=== PATIENT | female | born 1980 | race Caucasian/White ===

== ENCOUNTER 2017-02-02 16:00 | Inpatient (IN) | payer OTHER ==
[~2017-02-02 16:00] MED LIST: ELECTROLYTE-148 SOLN 1,000 ML IV ONE
[2017-02-02] MEDS ORDERED: AMPICILLIN 2 GM/100 ML BAG (PRE-DOCKED) IVPB ONE (16:30)
[2017-02-02] MEDS ORDERED: BUTORPHANOL TARTRATE 1 MG/ML VIAL IVPUSH ONE ×2 (17:15→17:30)
[2017-02-02] MEDS ORDERED: PROMETHAZINE HCL 25 MG/1 ML VIAL IVPUSH ONE ×2 (17:15→17:30)
[2017-02-02 17:42] LABS: BASOPHIL 0.2 % (0-2.0); EOSINOPHIL 0.1 % (0-4.5); MCH 28.6 pg (25.7-33.7); MCHC 32.3 g/dl (32.0-36.0); MEAN CELL VOLUME 88.6 fl (80-96); MEAN PLT VOLUME 11.9 fl (7.5-11.1); PLATELET COUNT 149 K/MM3 (134-434); RDW 14.3 % (11.6-15.6); WHITE BLOOD COUNT 13.7 K/mm3 (4.0-10.0)
[2017-02-02 18:07] VITALS: BMI 34.4
[2017-02-02 18:16] LABS: INR 0.91 (0.82-1.09)
[2017-02-02 18:19] LABS: ACTIVATED PTT 26.4 SECONDS (26.9-34.4)
[2017-02-02 18:22] LABS: CREATININE 0.7 mg/dL (0.55-1.02)
[2017-02-02 18:23] LABS: CALCIUM 9.1 mg/dL (8.5-10.1); COCKROFT - GAULT 133.79
[2017-02-02 18:44] LABS: HIV 1 & 2 AB NEGATIVE; HIV 1 AGp24 NEGATIVE
[2017-02-02 18:52] LABS: URINE MARIJUANA THC NEGATIVE ng/ml (CUTOFF=50)
--- NOTE | 2017-02-02 18:53 | HP ---
Past Medical History - Primary Care Physician PCP:: Matthias Baker - Admission Chief Complaint: 38.5 weeks, labor History of Present Illness: 36 yo f g 5 [id number], edc by sono in labor . c/o labor, cx 3 cm , 80 vx -2 mi, fhr cat 1. contraction irregular History Source: Patient Limitations to Obtaining History: No Limitations - Past Medical History ...: 5 ...Para: 3 ...Term: 3 ...: 0 ...Spon : 1 ...Induced : 0 ...Multiple Gestation: 0 ...LMP: 05/26/16 ... Weeks Gestation by Dates: 35.5 ...EDC by Dates: 03/02/17 ...EDC by Sono: 02/11/17 Endocrine: Yes: Diabetes Mellitus (GDM,diet controlled) - Past Surgical History Hx Myomectomy: No Hx Transabdominal Cerclage: No - Smoking History Smoking history: Never smoked Have you smoked in the past 12 months: No - Alcohol/Substance Use Hx Alcohol Use: No - Social History History of Recent Travel: No Home Medications - Allergies Allergies/Adverse Reactions: Allergies Allergy/AdvReac Type Severity Reaction Status Date / Time No Known Allergies Allergy Verified 02/02/17 17:57 - Home Medications Home Medications: Ambulatory Orders Pnv95/Ferrous Fumarate/FA [ Vitamin Tablet] 1 each PO DAILY 02/02/17 Review of Systems - Review of Systems Constitutional: reports: No Symptoms Eyes: reports: No Symptoms HENT: reports: No Symptoms Neck: reports: No Symptoms Cardiovascular: reports: No Symptoms Respiratory: reports: No Symptoms Gastrointestinal: reports: No Symptoms Genitourinary: reports: No Symptoms Breasts: reports: No Symptoms Reported Musculoskeletal: reports: No Symptoms Integumentary: reports: No Symptoms Neurological: reports: No Symptoms Endocrine: reports: No Symptoms Hematology/Lymphatic: reports: No Symptoms Psychiatric: reports: No Symptoms Physical Exam - Maternity Vital Signs: Vital Signs Temperature 98.7 F 02/02/17 18:00 Pulse Rate 97 H 02/02/17 18:00 Respiratory Rate 20 02/02/17 18:00 Blood Pressure 130/81 02/02/17 18:00 O2 Sat by Pulse Oximetry (%) Constitutional: Yes: Well Nourished, No Distress, Calm Eyes: Yes: WNL, Conjunctiva Clear, EOM Intact HENT: Yes: WNL, Atraumatic, Normocephalic Neck: Yes: WNL, Supple, Trachea Midline Cardiovascular: Yes: WNL, Regular Rate and Rhythm Breast(s): Yes: WNL - Abdominal Exam/OB Fundal Height: 40 Number of Fetuses: Single Contractions: Yes Regularity: Regular Intensity: Mod/Strong Monitor Mode: External Heart Rate Location: [facility] Category: I Accelerations: Uniform - Vaginal Exam/OB Speculum Exam: No Dilatation (cm): 3 cm, Effacement (%): 80 Amniotic Membrane Status: Intact Station: -2 - Physical Exam Extremities: Yes: WNL Edema: Yes Edema: LLE: Trace, RLE: Trace Deep Tendon Reflex Grade: Normal +2 Psychiatric: Yes: WNL - Labs Lab Results: CBC, BMP 02/02/17 16:30 02/02/17 16:30 Hemorrhage Risk Assessment - Risk Factors Medium Risk Factors: Yes: None High Risk Factors: Yes: None Risk Score: 1 Risk Level: Medium Risk Problem List - Problems (1) with 38 completed weeks gestation Code(s): Z3A.38 - 38 WEEKS GESTATION OF (2) Labor established Code(s): [id number] - (3) Gestational diabetes mellitus (GDM) affecting , antepartum Code(s): O24.919 - UNSP DIABETES MELLITUS IN , UNSPECIFIED TRIMESTER Assessment/Plan plan admit, fhm., pain management
--- NOTE | 2017-02-02 19:00 | PN ---
Progress Note (short form) - Note Progress Note: 515 pm, cx 6 cm, srom, clear , fhr cat 1, contraction mild Problem List - Problems (1) with 38 completed weeks gestation Code(s): Z3A.38 - 38 WEEKS GESTATION OF (2) Labor established Code(s): [id number] - (3) Gestational diabetes mellitus (GDM) affecting , antepartum Code(s): O24.919 - UNSP DIABETES MELLITUS IN , UNSPECIFIED TRIMESTER
[2017-02-02] MEDS ORDERED: BENZOCAINE 20% 57 GM BOTTLE TP PRN (20:19)
[2017-02-02] MEDS ORDERED: ACETAMINOPHEN 325 MG TABLET (FP) PO PRN (20:19)
[2017-02-02] MEDS ORDERED: WITCH HAZEL 50% (TUCKS) 40 PAD/JAR PAD TP PRN (20:19)
[2017-02-02] MEDS ORDERED: BISACODYL 10 MG SUPP.RECT RC PRN (20:19)
[2017-02-02] MEDS ORDERED: METHYLERGONOVINE MALEATE 0.2 MG/1 ML AMP IM PRN (20:19)
[2017-02-02] MEDS ORDERED: BENZOCAINE 28 GM HEMORRHOIDAL OINTMENT TP PRN (20:19)
[2017-02-02] MEDS ORDERED: AMPICILLIN (PRE-DOCKED) 1 GM/100 ML BAG IVPB SCH (20:30)
[2017-02-02] MEDS ORDERED: D5W-LR W/ 20 UNITS OXYTOCIN 1,000 ML IV SCH (20:30)
[2017-02-02 20:33] LABS: PLATELET ESTIMATE ADEQUATE (NORMAL)
[2017-02-02] MEDS: IBUPROFEN 600 MG TABLET (FP) PO PRN (21:15)
[2017-02-02] MEDS ORDERED: FERROUS SO4 325 MG TABLET (FP) PO SCH (22:00)
[2017-02-03 07:37] LABS: BASOPHIL 0.3 % (0-2.0); EOSINOPHIL 0.2 % (0-4.5); MCH 29.3 pg (25.7-33.7); MCHC 32.6 g/dl (32.0-36.0); MEAN CELL VOLUME 89.8 fl (80-96); MEAN PLT VOLUME 12.2 fl (7.5-11.1); NEUTROPHILS 71.2 % (42.8-82.8); PLATELET COUNT 104 K/MM3 (134-434); RDW 14.3 % (11.6-15.6); WHITE BLOOD COUNT 14.1 K/mm3 (4.0-10.0)
[2017-02-03] MEDS ORDERED: PRENATAL VITAMINS W/ FOLIC ACID TABLET (FP) PO SCH (10:00)
[2017-02-03] MEDS ORDERED: DIPHTH,PERTUSS(ACELL),TET 0.5 ML DISP.SYRIN IM ONE (10:00)
[2017-02-03] MEDS: FERROUS SO4 325 MG TABLET (FP) PO SCH ×2 (10:08→17:14)
[2017-02-03] MEDS: PRENATAL VITAMINS W/ FOLIC ACID TABLET (FP) PO SCH (10:08)
[2017-02-03] MEDS: IBUPROFEN 600 MG TABLET (FP) PO PRN (10:25)
[2017-02-03] MEDS ORDERED: SENNOSIDES/DOCUSATE COMBO (SENNA PLUS) TABLET (UD) PO PRN (22:00)
[2017-02-04] MEDS: FERROUS SO4 325 MG TABLET (FP) PO SCH (07:26)
[2017-02-04] MEDS: PRENATAL VITAMINS W/ FOLIC ACID TABLET (FP) PO SCH (10:11)
[2017-02-04 11:28] VITALS: BP 115/82; PULSE 66; TEMP 98.6
--- NOTE | 2017-02-07 20:18 | DS ---
Physical Exam-[employer] Vital Signs: Vital Signs Temperature 98.6 F 02/04/17 10:00 Pulse Rate 66 02/04/17 10:00 Respiratory Rate 20 02/04/17 10:00 Blood Pressure 115/82 02/04/17 10:00 O2 Sat by Pulse Oximetry (%) Constitutional: Yes: Well Nourished, No Distress, Calm Eyes: Yes: WNL, Conjunctiva Clear, EOM Intact HENT: Yes: WNL, Atraumatic, Normocephalic Neck: Yes: WNL, Supple, Trachea Midline Cardiovascular: Yes: WNL, Regular Rate and Rhythm Respiratory: Yes: WNL, Regular, CTA Bilaterally Gastrointestinal: Yes: WNL ...Rectal Exam: Yes: WNL Renal/: Yes: WNL External Genitalia: Yes: Normal Vaginal Exam: Yes: Normal ....Post : Yes: Uterus firm, Uterus non-tender, Slight lochia rubra Breast(s): Yes: WNL Musculoskeletal: Yes: WNL Extremities: Yes: WNL Integumentary: Yes: WNL Neurological: Yes: WNL, Alert, Oriented ...Motor Strength: WNL Psychiatric: Yes: WNL, Alert, Oriented Labs: CBC, BMP 02/03/17 06:00 02/02/17 16:30 Delivery - Delivery Vaginal Delivery: Spontaneous (no complication) Type of Anesthesia: Local Episiotomy/Laceration: None EBL (cc): 300 Delivery, Single - Stages of Labor Date 1st Stage Initiatied: 02/02/17 Time 1st Stage Initiated: 12:00 Date 2nd Stage Initiated: 02/02/17 Time 2nd Stage Initiated: 19:45 Date of Delivery: 02/02/17 Time of Delivery: 20:10 Time Placenta Delivered: 20:15 Placenta: Yes: Spontaneous - Condition of Retrieval Specialist/Global Program Director Present: No Gender: Female Weight: 7 lb 3 oz Position: Left, OA Total Hours ROM (Hrs/Mins): 3H5M - 1 Minute Total Score: 9 5 Minutes Total Score: 9 - Feeding Plan Initial Plan: Elected not to breastfeed exclusively throughout hospitalization Discharge Summary Reason For Visit: LABOR Procedures: Principal: Condition: Good - Instructions Diet, Activity, Other Instructions: regular diet, follow up [facility] care 4 weeks Referrals: Matthias Baker MD [Staff Physician] - Disposition: HOME - Home Medications Comprehensive Discharge Medication List: Ambulatory Orders Pnv95/Ferrous Fumarate/FA [ Vitamin Tablet] 1 each PO DAILY 02/02/17 Ibuprofen [Motrin -] 600 mg PO QID #28 tablet 02/03/17
== END 2017-02-04 12:40 | disposition home or self-care (01) | DRG 560 ==
LOC: JLDR 16:00 → J3W 21:50
PROVIDERS: ADMIT Obstetrics & Gynecology; ATTEND Obstetrics & Gynecology
PROC: 10E0XZZ Delivery of Products of Conception, External Approach (ICD-10-PCS; principal; 2017-02-02)
DX: O24.420 Gestational diabetes mellitus in childbirth, diet controlled (principal); Z3A.38 38 weeks gestation of pregnancy; Z37.0 Single live birth
CPT/HCPCS: 36415; 59409; 80048; 80307; 85025; 85610; 85730; 86593; 86850; 86900; 86901; 87389; 90715

== ENCOUNTER 2021-01-20 07:35 | Inpatient (IN) | payer OTHER ==
[2021-01-20] MEDS ORDERED: OXYTOCIN 20 UNITS in 0.9% NS 20 UNIT/1,000 ML INFUS.BAG IV ONE ×2 (08:21→10:20)
[2021-01-20 08:22] VITALS: BMI 37.6
[2021-01-20] MEDS ORDERED: ELECTROLYTE-148 SOLN 1,000 ML IV SCH (09:00)
[2021-01-20 09:20] LABS: BASO % 0.2 % (0-2.0); EOS % 0.3 % (0-4.5); HEMATOCRIT 38.3 % (32.4-45.2); HEMOGLOBIN 12.9 GM/dL (10.7-15.3); MCH 31.2 pg (25.7-33.7); MCHC 33.8 g/dl (32.0-36.0); MEAN CELL VOLUME 92.2 fl (80-96); NEUT % 51.5 % (42.8-82.8); PLATELET COUNT 126 K/MM3 (134-434); RBC 4.15 M/mm3 (3.60-5.2); RDW 15.6 % (11.6-15.6); WHITE BLOOD COUNT 8.4 K/mm3 (4.0-10.0)
[2021-01-20 09:26] LABS: INR 0.86 (0.83-1.09); PROTHROMBIN TIME (PATIENT) 10.5 SEC (9.7-13.0)
[2021-01-20 09:29] LABS: ACTIVATED PTT 22.9 SECONDS (25.2-36.5)
[2021-01-20] MEDS ORDERED: BISACODYL 10 MG SUPP.RECT RC PRN (09:35)
[2021-01-20] MEDS ORDERED: WITCH HAZEL 50% (TUCKS) 40 PAD/JAR PAD TP PRN (09:35)
[2021-01-20] MEDS ORDERED: BENZOCAINE 20% 57 GM BOTTLE TP PRN (09:35)
[2021-01-20] MEDS ORDERED: BENZOCAINE 28 GM HEMORRHOIDAL OINTMENT TP PRN (09:35)
[2021-01-20] MEDS ORDERED: MISOPROSTOL 100 MCG TABLET PV ONE (09:37)
[2021-01-20] MEDS ORDERED: OXYTOCIN 20 UNITS in 0.9% NS 20 UNIT/1,000 ML INFUS.BAG IV SCH (09:45)
[2021-01-20 09:47] LABS: BLOOD UREA NITROGEN 10.9 mg/dL (7-18); CALCIUM 8.5 mg/dL (8.5-10.1); CREATININE 0.7 mg/dL (0.55-1.3)
[2021-01-20 10:47] LABS: CORD BASE EXCESS -7.3 mmol/L (0-2); CORD HCO3 20.5 mmHg (20-29); CORD PCO2 49.2 mmHg (30-78); CORD pH 7.238 (7.14-7.44)
[2021-01-20] MEDS: IBUPROFEN 600 MG TABLET (FP) PO PRN ×2 (11:00→21:36)
[2021-01-20] MEDS ORDERED: IBUPROFEN 600 MG TABLET (FP) PO ONE (11:01)
[2021-01-20] MEDS ORDERED: ACETAMINOPHEN 325 MG TABLET (FP) ONE (11:01)
[2021-01-20] MEDS: ACETAMINOPHEN 325 MG TABLET (FP) PO PRN ×2 (11:10→21:35)
[2021-01-20 11:36] LABS: PLATELET ESTIMATE DECREASED
[2021-01-20] MEDS ORDERED: MISOPROSTOL 200 MCG TABLET ONE (12:36)
[2021-01-21 09:44] LABS: BASO % 0.3 % (0-2.0); EOS % 0.6 % (0-4.5); HEMATOCRIT 33.8 % (32.4-45.2); HEMOGLOBIN 11.1 GM/dL (10.7-15.3); LYMPH % 24.9 % (8-40); MCH 30.7 pg (25.7-33.7); MCHC 32.9 g/dl (32.0-36.0); MEAN CELL VOLUME 93.4 fl (80-96); MEAN PLT VOLUME 13.4 fl (7.5-11.1); NEUT % 67.2 % (42.8-82.8); PLATELET COUNT 96 K/MM3 (134-434); RBC 3.62 M/mm3 (3.60-5.2); RDW 15.5 % (11.6-15.6); WHITE BLOOD COUNT 9.5 K/mm3 (4.0-10.0)
[2021-01-21] MEDS ORDERED: DIPHTH,PERTUSS(ACELL),TET 0.5 ML DISP.SYRIN IM ONE (10:00)
[2021-01-21] MEDS: ACETAMINOPHEN 325 MG TABLET (FP) PO PRN (20:41)
[2021-01-21] MEDS: IBUPROFEN 600 MG TABLET (FP) PO PRN (20:41)
[2021-01-21] MEDS ORDERED: SENNOSIDES/DOCUSATE COMBO (SENNA PLUS) TABLET (UD) PO PRN (22:00)
[2021-01-22] MEDS: IBUPROFEN 600 MG TABLET (FP) PO PRN (07:51)
[2021-01-22] MEDS: ACETAMINOPHEN 325 MG TABLET (FP) PO PRN (07:52)
[2021-01-22 21:48] VITALS: BP 120/70; PULSE 70; TEMP 98
== END 2021-01-22 21:15 | disposition home or self-care (01) | DRG 560 ==
LOC: JLDR 07:35 → J3W 11:21
PROVIDERS: ADMIT Student in an Organized Health Care Education/Training Program; ATTEND Student in an Organized Health Care Education/Training Program
PROC: 10D07Z6 Extraction of Products of Conception, Vacuum, Via Natural or Artificial Opening (ICD-10-PCS; principal; 2021-01-20)
DX: O24.424 Gestational diabetes mellitus in childbirth, insulin controlled (principal); O66.0 Obstructed labor due to shoulder dystocia; Z3A.39 39 weeks gestation of pregnancy; Z37.0 Single live birth
CPT/HCPCS: 36415; 36600; 59025; 59409; 80048; 82803; 82962; 85025; 85610; 85730; 86780; 86850; 86900; 86901; 90715; C9803; U0003; U0005

== ENCOUNTER 2021-11-17 13:43 | Inpatient (IN) | payer OTHER ==
[2021-11-17] MEDS ORDERED: KETOROLAC TROMETHAMINE 30 MG/1 ML VIAL IVPUSH ONE (14:17)
[2021-11-17] MEDS ORDERED: ONDANSETRON 4 MG/2 ML VIAL IVPUSH ONE (14:17)
[2021-11-17] MEDS ORDERED: SODIUM CHLORIDE 1,000 ML IV STA ×2 (14:17→19:02)
[2021-11-17] MEDS ORDERED: ONDANSETRON 4 MG/2 ML VIAL ONE (15:06)
[2021-11-17] MEDS ORDERED: KETOROLAC TROMETHAMINE 30 MG/1 ML VIAL ONE (15:06)
[2021-11-17 15:23] LABS: EPI CELLS 35 /uL (0-25.1); HCG,QUALITATIVE URINE Negative; HYALINE CASTS 4 /uL (0-3.1); URINE APPEARANCE CLEAR; URINE BACTERIA 342 /uL (0-1359); URINE BILIRUBIN NEGATIVE (NEGATIVE); URINE COLOR YELLOW; URINE GLUCOSE (UA) NEGATIVE (NEGATIVE); URINE KETONE NEGATIVE (NEGATIVE); URINE LEUK ESTERASE NEGATIVE (NEGATIVE); URINE NITRITE NEGATIVE (NEGATIVE); URINE PROTEIN NEGATIVE (NEGATIVE); URINE WBC 33 /uL (0-25.8)
[2021-11-17 15:29] LABS: BASO % 0.1 % (0-2.0); EOS % 0.4 % (0-4.5); HEMOGLOBIN 12.6 GM/dL (10.7-15.3); MCH 28.5 pg (25.7-33.7); MCHC 33.1 g/dl (32.0-36.0); MEAN CELL VOLUME 86.2 fl (80-96); MEAN PLT VOLUME 9.1 fl (7.5-11.1); MONO % 6.6 % (3.8-10.2); NEUT % 73.9 % (42.8-82.8); PLATELET COUNT 225 10^3/uL (134-434); RBC 4.41 M/mm3 (3.60-5.2); RDW 13.9 % (11.6-15.6); WHITE BLOOD COUNT 8.6 K/mm3 (4.0-10.0)
[2021-11-17 15:35] LABS: INR 1.15 (0.83-1.09); PROTHROMBIN TIME (PATIENT) 13.2 SEC (9.7-13.0)
[2021-11-17 15:51] LABS: BLOOD UREA NITROGEN 8.1 mg/dL (7-18)
[2021-11-17 15:52] LABS: ALBUMIN 3.6 g/dl (3.4-5.0)
[2021-11-17 15:54] LABS: CREATININE 0.8 mg/dL (0.55-1.3)
[2021-11-17 15:56] LABS: BILIRUBIN,TOTAL 0.5 mg/dL (0.2-1); TOT PROT 7.4 g/dl (6.4-8.2)
[2021-11-17] MEDS ORDERED: ACETAMINOPHEN 1000 MG/100 ML BAG IVPB ONE (17:01)
[2021-11-17] MEDS ORDERED: MAG HYDROX/AL HYDROX/SIMETH -MYLANTA- ORAL SUSPENSION PO ONE (17:01)
[2021-11-17] MEDS ORDERED: FAMOTIDINE 20 MG/50 ML IVPB 20 MG/50 ML MG IVPB ONE ×2 (17:01→17:17)
[2021-11-17] MEDS ORDERED: ACETAMINOPHEN INJECTION 100 ML IVPB ONE (17:17)
[2021-11-17] MEDS ORDERED: MAG HYDROX/AL HYDROX/SIMETH 30 ML UNIT-DOSE CUP ONE (17:17)
[2021-11-17 17:57] LABS: URINE RBC 19 /uL (0-23.9)
[2021-11-17] MEDS ORDERED: PIPERACILLIN/TAZOB 3.375 GM 3.375 GM in DEXTROSE 5%-WATER - 50 ML IVPB ONE (18:55)
[2021-11-17] MEDS ORDERED: PIPERACILLIN/TAZOB 3.375 GM 3.375 GM/50 ML BAG IVPB ONE (19:35)
[2021-11-17] MEDS ORDERED: ONDANSETRON 4 MG/2 ML VIAL IVPUSH PRN (22:11)
[2021-11-17] MEDS ORDERED: ACETAMINOPHEN 1000 MG/100 ML BAG IVPB PRN ×2 (22:12→22:37)
[2021-11-17] MEDS ORDERED: morphine SULFATE 4 MG/ML VIAL IVPUSH PRN (22:12)
[2021-11-17] MEDS: SODIUM CHLORIDE 1,000 ML IV SCH (23:40)
[2021-11-18 01:11] VITALS: BMI 35.6
[2021-11-18] MEDS ORDERED: PIPERACILLIN/TAZOBACTAM 3.375 GM VIAL IVPB ONE ×4 (03:52→20:58)
[2021-11-18] MEDS ORDERED: DEXTROSE 5%-WATER - 50 ML IVPB ONE ×4 (03:52→20:58)
[2021-11-18] MEDS: PIPERACILLIN/TAZOB 3.375 GM 3.375 GM in DEXTROSE 5%-WATER - 50 ML IVPB SCH ×5 (03:56→21:01)
[2021-11-18 08:54] LABS: BASO % 0.4 % (0-2.0); EOS % 0.9 % (0-4.5); HEMATOCRIT 36.2 % (32.4-45.2); HEMOGLOBIN 11.8 GM/dL (10.7-15.3); LYMPH % 27.2 % (8-40); MCH 28.2 pg (25.7-33.7); MCHC 32.6 g/dl (32.0-36.0); MEAN CELL VOLUME 86.6 fl (80-96); MEAN PLT VOLUME 9.8 fl (7.5-11.1); MONO % 7.1 % (3.8-10.2); NEUT % 64.4 % (42.8-82.8); PLATELET COUNT 214 10^3/uL (134-434); RBC 4.18 M/mm3 (3.60-5.2); RDW 14.1 % (11.6-15.6); WHITE BLOOD COUNT 6.7 K/mm3 (4.0-10.0)
[2021-11-18 09:01] LABS: INR 1.12 (0.83-1.09); PROTHROMBIN TIME (PATIENT) 12.9 SEC (9.7-13.0)
[2021-11-18 09:24] LABS: CALCIUM 8.3 mg/dL (8.5-10.1)
[2021-11-18 09:26] LABS: ALBUMIN 3.1 g/dl (3.4-5.0); BLOOD UREA NITROGEN 5.9 mg/dL (7-18)
[2021-11-18 09:27] LABS: CREATININE 0.8 mg/dL (0.55-1.3)
[2021-11-18 09:29] LABS: BILIRUBIN,TOTAL 1.2 mg/dL (0.2-1); TOT PROT 6.3 g/dl (6.4-8.2)
[2021-11-18] MEDS ORDERED: BUPIVACAINE HCL/PF 0.5% (5MG/ML) 10 ML VIAL ONE (12:20)
[2021-11-18] MEDS ORDERED: IBUPROFEN 800 MG/8 ML IJ IVPB PRN (13:34)
[2021-11-18] MEDS ORDERED: ONDANSETRON 4 MG/2 ML VIAL ONE (14:27)
[2021-11-18] MEDS ORDERED: LIDOCAINE HCL/PF 2% SDV 5ML VIAL ONE (14:27)
[2021-11-18] MEDS ORDERED: DEXAMETHASONE SOD PHOSPHATE 4 MG/1 ML VIAL ONE (14:27)
[2021-11-18] MEDS: SODIUM CHLORIDE 1,000 ML IV SCH (23:05)
[2021-11-19] MEDS ORDERED: PIPERACILLIN/TAZOBACTAM 3.375 GM VIAL IVPB ONE ×3 (01:58→21:17)
[2021-11-19] MEDS ORDERED: DEXTROSE 5%-WATER - 50 ML IVPB ONE ×3 (01:58→21:17)
[2021-11-19] MEDS: PIPERACILLIN/TAZOB 3.375 GM 3.375 GM in DEXTROSE 5%-WATER - 50 ML IVPB SCH ×4 (02:15→21:20)
[2021-11-19 08:21] LABS: BASO % 0.3 % (0-2.0); EOS % 0.9 % (0-4.5); HEMATOCRIT 34.7 % (32.4-45.2); HEMOGLOBIN 11.2 GM/dL (10.7-15.3); MCHC 32.3 g/dl (32.0-36.0); MEAN CELL VOLUME 86.8 fl (80-96); MEAN PLT VOLUME 9.7 fl (7.5-11.1); MONO % 8.7 % (3.8-10.2); NEUT % 62.1 % (42.8-82.8); PLATELET COUNT 219 10^3/uL (134-434); RBC 3.99 M/mm3 (3.60-5.2); RDW 14.1 % (11.6-15.6); WHITE BLOOD COUNT 6.4 K/mm3 (4.0-10.0)
[2021-11-19] MEDS ORDERED: KETOROLAC TROMETHAMINE 30 MG/1 ML VIAL ONE (12:23)
[2021-11-19] MEDS ORDERED: DEXAMETHASONE SOD PHOSPHATE 4 MG/1 ML VIAL ONE (12:23)
[2021-11-19] MEDS ORDERED: LIDOCAINE HCL 2% 100 MG/5 ML DISP.SYRIN ONE (12:23)
[2021-11-19] MEDS ORDERED: ONDANSETRON 4 MG/2 ML VIAL ONE (12:23)
[2021-11-19] MEDS ORDERED: ROCURONIUM BROMIDE 50 MG/5 ML SYRINGE ONE ×2 (12:24→13:30)
[2021-11-19] MEDS ORDERED: MIDAZOLAM HCL 2 MG/2 ML SINGLE DOSE VIAL ONE (12:24)
[2021-11-19] MEDS ORDERED: PROPOFOL 20 ML ONE (12:24)
[2021-11-19] MEDS ORDERED: BUPIVACAINE HCL/PF 0.5% (5MG/ML) 10 ML VIAL ONE (13:35)
[2021-11-19] MEDS ORDERED: BUPIVACAINE HCL/PF 0.5% (5MG/ML) 10 ML VIAL IJ ONE ×2 (13:53→14:27)
[2021-11-19] MEDS ORDERED: LACTATED RINGERS SOLUTION 1,000 ML IV SCH ×2 (14:45→15:19)
[2021-11-19] MEDS ORDERED: SODIUM CHLORIDE 1,000 ML IV SCH (15:19)
[2021-11-19] MEDS ORDERED: IBUPROFEN 800 MG/8 ML IJ IVPB PRN (15:19)
[2021-11-19] MEDS ORDERED: ONDANSETRON 4 MG/2 ML VIAL IVPUSH PRN (15:19)
[2021-11-19] MEDS: morphine SULFATE 4 MG/ML VIAL IVPUSH PRN (21:25)
[2021-11-20] MEDS: PIPERACILLIN/TAZOB 3.375 GM 3.375 GM in DEXTROSE 5%-WATER - 50 ML IVPB SCH ×3 (04:00→15:26)
[2021-11-20] MEDS ORDERED: PIPERACILLIN/TAZOBACTAM 3.375 GM VIAL IVPB ONE ×2 (05:31→08:51)
[2021-11-20] MEDS ORDERED: DEXTROSE 5%-WATER - 50 ML IVPB ONE ×2 (05:31→08:51)
[2021-11-20 08:35] LABS: BASO % 0.3 % (0-2.0); EOS % 0.2 % (0-4.5); HEMATOCRIT 36.1 % (32.4-45.2); HEMOGLOBIN 12.1 GM/dL (10.7-15.3); LYMPH % 17.4 % (8-40); MCHC 33.6 g/dl (32.0-36.0); MEAN CELL VOLUME 86.2 fl (80-96); MEAN PLT VOLUME 9.5 fl (7.5-11.1); NEUT % 73.1 % (42.8-82.8); PLATELET COUNT 248 10^3/uL (134-434); RBC 4.19 M/mm3 (3.60-5.2); WHITE BLOOD COUNT 10.4 K/mm3 (4.0-10.0)
[2021-11-20] MEDS: morphine SULFATE 4 MG/ML VIAL IVPUSH PRN (08:53)
[2021-11-20 14:41] VITALS: BP 125/74; PULSE 69; TEMP 99.2
== END 2021-11-20 15:26 | disposition home or self-care (01) | DRG 263 ==
LOC: JER 13:43 → JERBED 18:56 → J6S 11-18 00:46
PROVIDERS: ADMIT Hospitalist; ATTEND Nurse Practitioner Acute Care
PROC: 0D9 Gastrointestinal System, Drainage (ICD-10-PCS; 2021-11-19)
PROC: 0FN44ZZ Release Gallbladder, Percutaneous Endoscopic Approach (ICD-10-PCS; 2021-11-19)
PROC: 0FT44ZZ Resection of Gallbladder, Percutaneous Endoscopic Approach (ICD-10-PCS; principal; 2021-11-19 12:00)
DX: K80.00 Calculus of gallbladder with acute cholecystitis without obstruction (principal); E66.9 Obesity, unspecified; Z68.35 Body mass index [BMI] 35.0-35.9, adult; E11.9 Type 2 diabetes mellitus without complications; K65.1 Peritoneal abscess; K66.0 Peritoneal adhesions (postprocedural) (postinfection)
CPT/HCPCS: 36415; 71046-TC-FY; 74177-TC; 76705-TC; 80053; 81003; 83690; 83735; 84703; 85025; 85610; 86850; 86900; 86901; 87040; 87077; 87086; 88304-TC; 93005; 93010; 94760; 99285-25; C9803-CS; Q9967; U0003; U0005

== ENCOUNTER 2024-02-13 19:37 | Emergency (ER) | payer OTHER ==
[2024-02-13 19:53] VITALS: TEMP 98.5; BMI 33.4
[2024-02-13 22:33] LABS: BASO % 0.3 % (0-2.0); EOS % 0.9 % (0-4.5); HEMATOCRIT 35.2 % (32.4-45.2); HEMOGLOBIN 11.7 GM/dL (10.7-15.3); LYMPH % 29.6 % (8-40); MCH 30.2 pg (25.7-33.7); MCHC 33.2 g/dl (32.0-36.0); MEAN PLT VOLUME 9.7 fl (7.5-11.1); MONO % 7.9 % (3.8-10.2); NEUT % 61.3 % (42.8-82.8); PLATELET COUNT 188 10^3/uL (134-434); RBC 3.87 M/mm3 (3.60-5.2); RDW 13.5 % (11.6-15.6); WHITE BLOOD COUNT 7.8 K/mm3 (4.0-10.0)
[2024-02-13 22:37] LABS: EPI CELLS 16 /uL (0-25.1); HYALINE CASTS 0 /uL (0-3.1); URINE APPEARANCE CLEAR; URINE BACTERIA 807 /uL (0-1359); URINE BILIRUBIN NEGATIVE (NEGATIVE); URINE COLOR YELLOW; URINE GLUCOSE (UA) NEGATIVE (NEGATIVE); URINE KETONE NEGATIVE (NEGATIVE); URINE LEUK ESTERASE TRACE (NEGATIVE); URINE NITRITE NEGATIVE (NEGATIVE); URINE PROTEIN NEGATIVE (NEGATIVE); URINE RBC 6 /uL (0-23.9); URINE UROBILINOGEN 0.2 mg/dL (0.2-1.0); URINE WBC 25 /uL (0-25.8)
[2024-02-13] MEDS ORDERED: NITROFURANTOIN MACROCRYSTAL 50 MG CAPSULE (FP) ONE (22:51)
[2024-02-13] MEDS: NITROFURANTOIN MONOHYD/M-CRYST 100 MG CAPSULE PO ONE (22:56)
[2024-02-13 23:10] LABS: POTASSIUM 3.7 mmol/L (3.5-5.1)
[2024-02-13 23:11] LABS: CALCIUM 9.1 mg/dL (8.5-10.1)
[2024-02-13 23:12] LABS: ALBUMIN 2.8 g/dl (3.4-5.0)
[2024-02-13 23:15] LABS: CREATININE 0.5 mg/dL (0.55-1.3)
[2024-02-13 23:17] LABS: BILIRUBIN,TOTAL 0.1 mg/dL (0.2-1); TOT PROT 6.2 g/dl (6.4-8.2)
[2024-02-14 01:37] VITALS: BP 102/74; PULSE 82; RESP 16
== END 2024-02-14 01:41 | disposition home or self-care (01) ==
LOC: JER 19:37
DX: O09.512 Supervision of elderly primigravida, second trimester (principal); O36.5920 Maternal care for other known or suspected poor fetal growth, second trimester, not applicable or unspecified; Z3A.19 19 weeks gestation of pregnancy
CPT/HCPCS: 36415; 76815-TC; 80053; 81003; 84702; 84703; 85025; 86850; 86900; 86901; 87086; 99284-25

== ENCOUNTER 2024-07-17 10:55 | Inpatient (IN) | payer OTHER ==
[2024-07-17] MEDS: LACTATED RINGERS SOLUTION 1,000 ML/1,000 ML INFUS.BAG IV STA (12:50)
[2024-07-17] MEDS ORDERED: OXYTOCIN 30 UNITS in 0.9% NS 30 UNIT/500 ML INFUS.BAG IVPB ONE (12:53)
[2024-07-17] MEDS: OXYTOCIN 30 UNITS in 0.9% NS 30 UNIT/500 ML INFUS.BAG IVPB SCH (13:00)
[2024-07-17 13:04] LABS: HEMATOCRIT 36.1 % (32.4-45.2); HEMOGLOBIN 12.5 GM/dL (10.7-15.3); MCH 31.4 pg (25.7-33.7); MEAN CELL VOLUME 90.7 fl (80-96); RBC 3.98 M/mm3 (3.60-5.2); WHITE BLOOD COUNT 7.7 K/mm3 (4.0-10.0)
[2024-07-17 13:05] LABS: BASO % 0.2 % (0-2.0); EOS % 0.3 % (0-4.5); LYMPH % 23.1 % (8-40); MCHC 34.6 g/dl (32.0-36.0); MEAN PLT VOLUME 10.9 fl (7.5-11.1); MONO % 6.7 % (3.8-10.2); NEUT % 69.7 % (42.8-82.8); PLATELET COUNT 155 10^3/uL (134-434); RDW 14.3 % (11.6-15.6)
[2024-07-17 13:15] LABS: ACTIVATED PTT 29.2 SECONDS (25.2-36.5)
[2024-07-17 13:19] LABS: POTASSIUM 4.1 mmol/L (3.5-5.1)
[2024-07-17 13:20] LABS: CALCIUM 9.2 mg/dL (8.5-10.1)
[2024-07-17 13:21] LABS: BLOOD UREA NITROGEN 6.7 mg/dL (7-18)
[2024-07-17 13:24] LABS: CREATININE 0.6 mg/dL (0.55-1.3)
[2024-07-17 13:32] LABS: INR 0.95 (0.83-1.09); PROTHROMBIN TIME (PATIENT) 10.7 SEC (9.7-13.0)
[2024-07-17] MEDS: LACTATED RINGERS SOLUTION 1,000 ML/1,000 ML INFUS.BAG IV SCH (13:45)
[2024-07-17 14:02] VITALS: BMI 39.4
[2024-07-17] MEDS ORDERED: BUTORPHANOL TARTRATE 2 MG/ML VIAL ONE ×2 (16:20→19:40)
[2024-07-17] MEDS ORDERED: PROMETHAZINE HCL 25 MG/1 ML VIAL ONE ×2 (16:20→19:40)
[2024-07-17] MEDS: PROMETHAZINE HCL 25 MG/1 ML VIAL IVPB ONE ×2 (16:25→19:45)
[2024-07-17] MEDS: BUTORPHANOL TARTRATE 2 MG/ML VIAL IVPB ONE ×2 (16:25→19:45)
[2024-07-17 16:43] LABS: COCAINE, UR NEGATIVE (NEGATIVE); METHADONE, UR NEGATIVE (NEGATIVE); OPIATES, URI NEGATIVE (NEGATIVE); URINE BENZODIAZEPINES NEGATIVE (NEGATIVE)
[2024-07-17 16:44] LABS: PHENCYCLIDINE,URINE NEGATIVE (NEGATIVE)
[2024-07-17 18:13] LABS: URINE AMPHETAMINES NEGATIVE (NEGATIVE); URINE BARBITURATES NEGATIVE (NEGATIVE)
[2024-07-17 21:10] VITALS: RESP 18
[2024-07-17] MEDS ORDERED: LIDOCAINE HCL 1% PRESERVATIVE FREE - 30ML VIAL ONE (21:58)
[2024-07-17] MEDS ORDERED: OXYTOCIN 20 UNITS in 0.9% NS 20 UNIT/1,000 ML INFUS.BAG IV ONE (21:58)
[2024-07-17] MEDS ORDERED: MISOPROSTOL 200 MCG TABLET ONE (22:28)
[2024-07-17] MEDS ORDERED: BENZOCAINE 28 GM HEMORRHOIDAL OINTMENT TP PRN (22:33)
[2024-07-17] MEDS ORDERED: BISACODYL 10 MG SUPP.RECT RC PRN (22:33)
[2024-07-17] MEDS ORDERED: METHYLERGONOVINE MALEATE 0.2 MG/1 ML AMP IM PRN (22:33)
[2024-07-17] MEDS ORDERED: WITCH HAZEL 50% (TUCKS) 40 PAD/JAR PAD TP PRN (22:33)
[2024-07-17] MEDS ORDERED: BENZOCAINE 20% 57 GM BOTTLE TP PRN (22:33)
[2024-07-17] MEDS: OXYTOCIN 20 UNITS in 0.9% NS 20 UNIT/1,000 ML INFUS.BAG IV SCH (23:15)
[2024-07-17] MEDS ORDERED: IBUPROFEN 600 MG TABLET (FP) PO ONE (23:50)
[2024-07-17] MEDS: IBUPROFEN 600 MG TABLET (FP) PO PRN (23:52)
[2024-07-18] MEDS: ACETAMINOPHEN 325 MG TABLET (FP) PO PRN (03:02)
[2024-07-18 07:55] LABS: BASO % 0.3 % (0-2.0); EOS % 0.1 % (0-4.5); HEMATOCRIT 34.8 % (32.4-45.2); HEMOGLOBIN 11.5 GM/dL (10.7-15.3); LYMPH % 17.2 % (8-40); MCH 30.4 pg (25.7-33.7); MCHC 33.2 g/dl (32.0-36.0); MEAN CELL VOLUME 91.7 fl (80-96); MEAN PLT VOLUME 10.7 fl (7.5-11.1); MONO % 8.9 % (3.8-10.2); NEUT % 73.5 % (42.8-82.8); PLATELET COUNT 163 10^3/uL (134-434); RDW 14.1 % (11.6-15.6)
[2024-07-18] MEDS: metFORMIN HCL 500 MG TABLET (FP) PO SCH (09:26)
[2024-07-18] MEDS: FLUTICASONE PROP 0.05% 16 GM NASAL SPRAY NS SCH (09:27)
[2024-07-18 14:32] VITALS: BP 125/86; PULSE 105; TEMP 97.9
[2024-07-18] MEDS ORDERED: SENNOSIDES/DOCUSATE COMBO (SENNA PLUS) TABLET (UD) PO PRN (22:00)
[2024-07-20 08:12] LABS: TOXOPLASMA IGG QUANTITATIVE 41.3 IU/mL (0.0-7.1)
== END 2024-07-18 17:15 | disposition home or self-care (01) | DRG 560 ==
LOC: JLDR 10:55 → J3W 07-18 02:49
PROVIDERS: ADMIT Obstetrics & Gynecology Obstetrics; ATTEND Obstetrics & Gynecology Obstetrics
PROC: 10E0XZZ Delivery of Products of Conception, External Approach (ICD-10-PCS; principal; 2024-07-17)
DX: O36.4XX0 Maternal care for intrauterine death, not applicable or unspecified (principal); O24.429 Gestational diabetes mellitus in childbirth, unspecified control; O66.0 Obstructed labor due to shoulder dystocia; Z3A.39 39 weeks gestation of pregnancy; Z37.1 Single stillbirth
CPT/HCPCS: 36415; 59409; 80048; 80307; 82962; 85025; 85610; 85730; 86644; 86645; 86694; 86762; 86777; 86778; 86780; 86850; 86900; 86901; 88307-TC

== ENCOUNTER 2025-01-25 05:32 | Day surgery (SDC) | payer OTHER ==
[2025-01-23 12:01] VITALS: BMI 35.5
[2025-01-25] MEDS ORDERED: PROPOFOL 20 ML ONE ×3 (09:59→11:54)
[2025-01-25] MEDS ORDERED: MIDAZOLAM HCL 2 MG/2 ML SINGLE DOSE VIAL ONE (09:59)
[2025-01-25] MEDS ORDERED: LIDOCAINE HCL/PF 2% SDV 5ML VIAL ONE (10:03)
[2025-01-25] MEDS ORDERED: oxyCODONE HCL 5 MG TABLET PO PRN ×2 (10:10)
[2025-01-25] MEDS ORDERED: ONDANSETRON 4 MG/2 ML VIAL IVPUSH PRN (10:10)
[2025-01-25] MEDS ORDERED: PROMETHAZINE HCL 25 MG/1 ML VIAL IVPB PRN (10:10)
[2025-01-25] MEDS ORDERED: LACTATED RINGERS SOLUTION 1,000 ML IV SCH (10:15)
[2025-01-25] MEDS: BUPIVACAINE HCL/PF 0.5% (5MG/ML) 10 ML VIAL IJ ONE (12:21)
[2025-01-25] MEDS ORDERED: KETOROLAC TROMETHAMINE 30 MG/1 ML VIAL ONE (12:34)
[2025-01-25] MEDS ORDERED: ONDANSETRON 4 MG/2 ML VIAL ONE (12:34)
[2025-01-25 15:50] VITALS: RESP 18
[2025-01-25 15:52] VITALS: BP 127/88; PULSE 80; TEMP 97.7
== END 2025-01-25 15:10 | disposition home or self-care (01) ==
LOC: JASU-SURG 05:32
PROVIDERS: ATTEND Obstetrics & Gynecology Obstetrics
PROC: 0UBC7ZX Excision of Cervix, Via Natural or Artificial Opening, Diagnostic (ICD-10-PCS; principal; 2025-01-25 11:00)
DX: R87.613 High grade squamous intraepithelial lesion on cytologic smear of cervix (HGSIL) (principal)
CPT/HCPCS: 81025; 82962; 88305-TC; 88307-TC; 88341-TC; 88342-TC; 94760